=== PATIENT | male | born 1985 | race Caucasian/White ===

== ENCOUNTER 2016-07-31 16:08 | Emergency (ER) | payer BC ==
--- NOTE | ~2016-07-31 | EKG ---
PATIENT: JOANN BENJAMIN UNIT #: [id number] Ventricular Rate: 80 BPM Atrial Rate: 80 BPM P-R Interval: 172 ms QRS Duration: 144 ms Q-T Interval: 408 ms QTC Calculation(Bezet): 470 ms P Winifred: 67 degrees Calculated R Winifred: 18 degrees Calculated T Winifred: 28 degrees Diagnosis Line: Normal sinus rhythm Diagnosis Line: Right bundle branch block 2st Diagnosis Line: Abnormal ECG Diagnosis Line: No previous ECGs available Diagnosis Line: Confirmed by DESTINEE STACK MD ([id number]) on 08/04/2016 Diagnosis Line: 8:08:53 AM INTERPRETING MD: SREEKANTH AVENDAÑO
--- NOTE | ~2016-07-31 | CT2 ---
[facility]. [facility] A Service of [facility] RADIOLOGY TEXT RESULTS PATIENT: JOANN BENJAMIN LOCATION: SED : 81 UNIT #: [id number] AGE: [address]: Rikki Lopez MD SEX: M ORDER DR: [id number] [place] [id number] E MR#: [id number] Acc #: [id number] NAME: JOANN BENJAMIN. : 1985 SEX: M STUDY DATE/TIME: 07/31/2016 17:23 UNIT: SED ROOM: STUDY DESCRIPTION: CT Abd and Pelv W Cont Attending Physician: Rikki Lopez M.D. Ordering Physician: Rikki Lopez M.D. Primary Care Physician: Deandra Valente M.D. MEDICAL IMAGING REPORT This report is preliminary unless electronic signature is present. EXAM CT abdomen and pelvis with contrast INDICATIONS Nausea, bloody stools for the past 3 days PROCEDURE Contrast-enhanced CT of the abdomen and pelvis. This CT exam was performed with one or more of the following radiation dose reduction techniques: automatic exposure control, adjustment of mA and/or kV according to patient size, and iterative reconstruction. COMPARISON 02/14/2013 FINDINGS Abdomen with contrast: Included lung bases are clear. There is an indeterminate low-attenuation lesion posterior right hepatic lobe that measures 3 cm, stable to minimally increased since the 2013 study. The spleen, adrenal glands, pancreas, gallbladder are unremarkable. Bowel loops are nondilated; appendix is normal. Bilateral renal cysts, largest in left kidney measures 3.7 cm. Pelvis with contrast: No pelvic mass or fluid. No aggressive appearing bone lesion. IMPRESSION 1. No acute findings. 2. Indeterminate lesion posterior right hepatic lobe is very similar to 2013, suggesting it represents a benign finding. [facility] A Service [facility] RADIOLOGY TEXT RESULTS PATIENT: JOANN BENJAMIN LOCATION: SED : 81 UNIT #: [id number] AGE: [address]: Rikki Lopez MD SEX: M ORDER DR: Dictated by... Ant Terry M.D. THIS IS AN ELECTRONICALLY VERIFIED REPORT Ant Terry M.D. at 07/31/2016 10:23 PM EED/to TD: 07/31/2016 21:00 JOB #: [id number] MEDICAL IMAGING REPORT Page 1 of 1
[~2016-07-31 16:08] MED LIST: LISINOPRIL10 MG PO
[2016-07-31] MEDS ORDERED: [UNRECOGNIZED DRUG - REMARK] (16:13)
[2016-07-31 16:59] LABS: BASOPHIL# 0.1 X10e3 (0-0.3); EOSINOPHIL# 0.2 X10e3 (0-0.7); EOSINOPHIL% 2.5 % (0.0-7.0); HEMATOCRIT 36.9 % (38.0-50.0); HEMOGLOBIN 12.7 gm/dL (13.0-16.0); LYMPHOCYTE# 2.6 X10e3 (1.0-3.5); LYMPHOCYTE% 34.7 % (17.0-45.0); MEAN CELL VOLUME 87.7 FL (83-96); MEAN CORPUSCULAR HEMOGLOBIN 30.2 PG (28-34); MEAN CORPUSCULAR HGB CONC 34.4 g/dL (30-36); MEAN PLATELET VOLUME 8.9 FL (6.5-11.5); MONOCYTE# 0.5 X10e3 (0-1.0); MONOCYTE% 6.9 % (3.0-12.0); NEUTROPHIL# 4.1 X10e3 (1.5-7.1); NEUTROPHIL% 54.9 % (40-75); PLATELET COUNT 210 X10e3 (140-420); RED BLOOD COUNT 4.21 X10e (3.90-5.60); WHITE BLOOD COUNT 7.4 X10e3 (4.0-10.5)
[2016-07-31 17:01] LABS: DIFF IND NO
[2016-07-31 17:17] LABS: ALBUMIN SERUM 4.5 g/dL (3.5-5.0); BILIRUBIN, DIRECT 0.1 mg/dL (0.0-0.2); BILIRUBIN,INDIRECT 0.4 mg/dL (0.0-0.9); BILIRUBIN,TOTAL 0.5 mg/dL (0.2-2.0); CALCIUM SERUM 8.9 mg/dL (8.4-10.2); GLOM FILT RATE Estimated 98.5 mL/min (>60); POTASSIUM 3.9 mmol/L (3.5-5.1); PROTEIN TOTAL SERUM 6.7 g/dL (6.0-8.3)
== END 2016-07-31 19:57 ==
LOC: SED 16:08
PROVIDERS: Emergency Medicine
DX: K92.2 Gastrointestinal hemorrhage, unspecified (principal); I10 Essential (primary) hypertension
CPT/HCPCS: 36415; 74177; 80048; 80076; 82150; 82270; 83690; 85025; 86677; 93005; 96374; 96375; 99284; 99285; C9113; J2270; J2405; Q9967